=== PATIENT | male | born 1975 | race Caucasian/White ===

== ENCOUNTER 2016-12-30 13:46 | Inpatient (IN) | payer BC ==
--- NOTE | 2016-12-30 13:49 | PDOC ---
Attending Attestation - Resident Resident Name: ZariaDebbieCherri - ED Attending Attestation I have performed the following: I have examined & evaluated the patient, The case was reviewed & discussed with the resident, I agree w/resident's findings & plan, Exceptions are as noted - HPI HPI: 12/30/16 13:48 The patient is a 41-year-old male, sp cholecstectomy, who presents with abdominal pain and subjective fever. 12/30/16 16:59 - Physicial Exam PE: 12/30/16 13:49 The patient is well-appearing and in no acute distress Vitals noted including heart rate greater than 90, fever He meets diagnostic criteria for SIRS Abdomen is soft and tender to deep palpation in the epigastrum and LUQ - Medical Decision Making 12/30/16 17:00 The patient is well appearing and in no acute distress I suspect an intrabdominal source of infection given the abdominal pain and LFT abnormalities Hepatitis panel pending Will cover with Zosyn Will admit Clinical impression: Fever Abdominal pain Transaminitis Sepsis Possible cholangitis Case discussed in detail with admitting provider including history, physical exam and ancillary studies. Admitting physician has assumed care for the patient, will follow all pending diagnostics and will complete the evaluation and treatment. 12/30/16 17:08
[2016-12-30] MEDS ORDERED: SODIUM CHLORIDE 0.9% 1000 ML INFUS.BAG IV STA (14:05)
[2016-12-30] MEDS ORDERED: morphine CARPU-JECT 4 MG/1 ML DISP.SYRIN IVPUSH ONE ×2 (14:08→17:20)
[2016-12-30 14:19] LABS: URINE APPEARANCE Clear; URINE BILIRUBIN Negative (NEGATIVE); URINE BLOOD Trace-intact (NEGATIVE); URINE COLOR AMBER; URINE GLUCOSE (UA) Negative (NEGATIVE); URINE KETONE Negative (NEGATIVE); URINE LEUK ESTERASE Negative (NEGATIVE); URINE NITRITE Negative (NEGATIVE); URINE PROTEIN Negative (NEGATIVE); URINE UROBILINOGEN 1.0 E.U/dl (0.2-1.0)
--- NOTE | 2016-12-30 14:28 | PDOC ---
History of Present Illness - General Chief Complaint: Pain, Acute Stated Complaint: ABDOMINAL PAIN RADIATING TO THE BACK Time Seen by Provider: 12/30/16 13:47 History Source: Patient Exam Limitations: No Limitations - History of Present Illness Initial Comments: 12/30/16 14:17 CHIEF COMPLAINT: Severe abdominal pain PCP: Dr. Muller HISTORY OF PRESENT ILLNESS: 41 year old male presented to the ED with the chief complaints of severe abdominal pain since yesterday. A/c to the patient, he started having abdominal pain since yesterday, located in the epigastric and umbilical area, radiating b/ l to the back, spasmodic in nature, lasting for 10-20 seconds, 10/10 in intensity, associated with nausea no vomiting. He also felt chest pressure but denies palpitation, sob, cough. Noticed dark colored stool this morning, no fresh blood. [place] feverish (didn't record the temperature), chills but no rigors or sweating. Bladder habit normal. Sleep disturbed and appetite decreased since the illness. Patient reports he had blood in his right eye, went to an molding press operator and they said it would resolve without medical management and it went away after 2weeks. Patient mentions he had cholecystectomy 20 yrs ago. And after 2 yrs of the surgery, they had to perform an open abdominal surgery to remove the remaining stones, mentions " I had so many stones, they could make a necklace out of it". Recent Travel: None PAST MEDICAL HISTORY: Borderline Hypertension and Hyperlipidemia. PAST SURGICAL HISTORY: Cholecystectomy (20 yrs ago) Social History: Smoking: Denies Alcohol: Occasional. Drugs: Denies Occupation: Traveling Crane Operator at a company. Family History: Allergies Past History - Past Medical History Allergies/Adverse Reactions: Allergies Allergy/AdvReac Type Severity Reaction Status Date / Time No Known Allergies Allergy Verified 12/30/16 13:47 Home Medications: Ambulatory Orders NK [No Known Home Medication] 12/30/16 - Surgical History Cholecystectomy: Yes (AGE 23) - Psycho/Social/Smoking Cessation Hx Anxiety: No Suicidal Ideation: No Smoking History: Never smoked Hx Alcohol Use: Yes (OCCASIONAL) Drug/Substance Use Hx: No Substance Use Type: None Review of Systems - Review of Systems Able to Perform ROS?: Yes Comments:: 12/30/16 14:29 CONSTITUTIONAL: Absent: fever, chills, diaphoresis, generalized weakness, malaise, loss of appetite HEENT: Absent: rhinorrhea, nasal congestion, throat pain, throat swelling, difficulty swallowing, mouth swelling, ear pain, eye pain, visual Changes CARDIOVASCULAR: Absent: chest pain, syncope, palpitations, irregular heart rate, lightheadedness , peripheral edema RESPIRATORY: Absent: cough, shortness of breath, dyspnea with exertion, orthopnea, wheezing, stridor, hemoptysis GASTROINTESTINAL: Present:abdominal pain, abdominal distension Absent: , nausea, vomiting, diarrhea, constipation, melena, hematochezia GENITOURINARY: Absent: dysuria, frequency, urgency, hesitancy, hematuria, flank pain, genital pain MUSCULOSKELETAL: Present: Back pain Absent: myalgia, arthralgia, joint swelling SKIN: Absent: rash, itching, pallor HEMATOLOGIC/IMMUNOLOGIC: Absent: easy bleeding, easy bruising, lymphadenopathy, frequent infections ENDOCRINE: Absent: unexplained weight gain, unexplained weight loss, heat intolerance, cold intolerance NEUROLOGIC: Absent: headache, focal weakness or paresthesias, dizziness, unsteady gait, seizure, mental status changes, bladder or bowel incontinence PSYCHIATRIC: Absent: anxiety, depression, suicidal or homicidal ideation, hallucinations. Is the patient limited Bulgarian proficient: No *Physical Exam - Vital Signs Last Vital Signs Temp Pulse Resp BP Pulse Ox 101.6 F H 96 H 16 154/97 98 12/30/16 13:47 12/30/16 13:47 12/30/16 13:47 12/30/16 13:47 12/30/16 13:47 - Physical Exam Comments: 12/30/16 14:31 PE: GENERAL: Awake, alert, and fully oriented, in no acute distress HEAD: No signs of trauma EYES: PERRLA, EOMI, sclera anicteric, conjunctiva clear ENT: Auricles normal inspection, hearing grossly normal, nares patent, oropharynx clear without exudates. Moist mucosa NECK: Normal ROM, supple, no lymphadenopathy, JVD, or masses LUNGS: Breath sounds equal, clear to auscultation bilaterally. No wheezes, and no crackles.. HEART: Regular rate and rhythm, normal S1 and S2, no murmurs, rubs or gallops ABDOMEN: Soft, tenderness on the left and right upper quadrant, normoactive bowel sounds. No guarding, no rebound. No masses EXTREMITIES: Normal range of motion, no edema. No clubbing or cyanosis. No cords, erythema, or tenderness NEUROLOGICAL: Cranial nerves II through XII grossly intact. Normal speech, normal gait SKIN: Warm, Dry, normal turgor, no rashes or lesions noted. ED Treatment Course - LABORATORY CBC & Chemistry Diagram: 12/30/16 14:35 12/30/16 14:35 Medical Decision Making - Medical Decision Making 12/30/16 14:31 Patient seen and examined at bed side. Vitals noted, temp- 101.6F, HR 96bpm. Patient looks comfortable. Will order basic labs, cardiac profile, lactic acid, UA, CXR, EKG, Abdominal CT scan. IV NS bolus 2L IV Morphine 4mg. 12/30/16 15:00 Patient reassessed. Pain still persists. Will order IV Morphine 4mg stat 12/30/2016 17:00 Labs noted, has transaminitis, slight elevation of WBC. Hepatitis panel pending 12/30/2016 17:30 CT scan shows : Sigmoid diverticulosis without evidence of acute diverticulitis. No acute pathology. Left inguinal hernia containing fat only. 2.4 cm duodenal diverticulum. A/P: Sepsis secondary to most likely GI origin (Possible colitis) Sepsis protocol was started in the ED. Received 2L of bolus of IV NS followed by maintainance fluid Total of 8mg of IV Morphine Admit to Med-Surg Case discussed with Dr. Rai. Would consider GI consult Illness, Investigation and Plan of care explained to the patient. He verbalized understanding. Case seen and discussed with Dr. Sarmiento. *DC/Admit/Observation/Transfer Diagnosis at time of Disposition: Sepsis - Discharge Dispostion Condition at time of disposition: Good Admit: Yes Decision to Admit order Date/Time: 12/30/16 17:17
[2016-12-30] MEDS ORDERED: ACETAMINOPHEN 325 MG TABLET (FP) PO ONE (14:34)
[2016-12-30 14:44] LABS: BASOPHIL 2.8 % (0-2.0); EOSINOPHIL 0.1 % (0-4.5); MCH 28.9 pg (25.7-33.7); MEAN CELL VOLUME 85.1 fl (80-96); MEAN PLT VOLUME 8.5 fl (7.5-11.1); NEUTROPHILS 88.6 % (42.8-82.8); PLATELET COUNT 228 K/MM3 (134-434); RDW 12.5 % (11.9-15.9); WHITE BLOOD COUNT 10.2 K/mm3 (4.0-10.0)
[2016-12-30] MEDS ORDERED: ACETAMINOPHEN 325 MG TABLET (FP) ONE (14:44)
[2016-12-30 14:57] LABS: ACTIVATED PTT 32.2 SECONDS (24.0-38.9)
[2016-12-30 15:01] LABS: INR 1.08 (0.82-1.09); PROTHROMBIN TIME (PATIENT) 12.1 SEC (10.2-13.0)
[2016-12-30 15:05] LABS: ALBUMIN 4.9 g/dl (3.5-5.0); ALK PHOS 116 U/L (32-92); ANION GAP 9 (8-16); BILIRUBIN,TOTAL 1.4 mg/dl (0.2-1.0); CALCIUM 9.6 mg/dl (8.4-10.2); CO2 26 mmol/L (22-28); CPK(DFH) 160 IU/L (38-174); GLUCOSE,RANDOM 103 mg/dl (74-106); SGOT/AST 236 U/L (10-42); TOT PROT 8.7 g/dl (6.4-8.3)
[2016-12-30 15:20] LABS: SGPT/ALT 385 U/L (10-40)
[2016-12-30 15:37] LABS: TROPONIN I (DFP) < 0.03 ng/ml (0.03-0.50)
[2016-12-30 15:43] LABS: CK MB 1.6 ng/ml (0.3-4.0)
[2016-12-30] MEDS ORDERED: PIPERACILLIN/TAZOBACTAM 4.5 GM VIAL IVPB ONE (17:08)
[2016-12-30] MEDS ORDERED: PIPERACILLIN/TAZOB 4.5 GM/100 ML PRE-DOCKED IVPB ONE (17:12)
[2016-12-30] MEDS: SODIUM CHLORIDE 1,000 ML IV SCH ×2 (17:18→21:29)
[2016-12-30 18:36] VITALS: BMI 33.7
--- NOTE | 2016-12-30 20:58 | EKG ---
Test Reason : Blood Pressure : / mmHG Vent. Rate : 084 BPM Atrial Rate : 084 BPM P-R Int : 146 ms QRS Dur : 128 ms QT Int : 374 ms P-R-T Axes : 042 -24 -10 degrees QTc Int : 441 ms NORMAL SINUS RHYTHM RIGHT BUNDLE BRANCH BLOCK MINIMAL VOLTAGE CRITERIA FOR LVH, MAY BE NORMAL VARIANT ABNORMAL ECG NO PREVIOUS ECGS AVAILABLE Confirmed by ELIZABETH KNOTT MD ([id number]) on 12/30/2016 8:57:45 PM Referred By: CASEY LI Confirmed By:ELIZABETH KNOTT MD
[2016-12-30] MEDS: HEPARIN NA (PORCINE) 5,000 UNITS/ML 1ML VIAL SQ SCH (21:29)
[2016-12-30] MEDS ORDERED: diphenhydrAMINE HCL 25 MG CAPSULE (FP) PO PRN (23:01)
[2016-12-30] MEDS: morphine CARPU-JECT 2 MG/1 ML DISP.SYRIN IVPB PRN (23:17)
--- NOTE | 2016-12-30 23:17 | HP ---
Admitting History and Physical - Admission Chief Complaint: abd pain, fever, chills History of Present Illness: 41 yo obese m with hx of cholecystectomy 20 yr ago who presents to the ER w c/o abdominal pain. He reports the pain started yesterday 830P, the pain is epigastric and radiates to his back, chest and sides. He reports associated chills, body aches, and fever. He states he took 2 Tylenol with little improvement. He denies any aggravating factors. He reports eating sphaghetti before onset of the the pain. He denies diarrhea, vomiting, nausea, sick contacts, recent travel, cough, sore throat. He denies syncope, heart palps, sob , dysuria, bloody stools, leg edema, weakness, numbness. He denies use of recent abx, supplements, advil, motrin. PMH/PSH- cholecystectomy, obesity Social- 3 glasses of wine weekly. denies rec drugs, tobacco. Works in [employer] de[employer] for [employer]. Famhx- mom- low platelets. no PCP ros neg except for hpi Physical general- in nad, alert, bbese hent- at/nc, neck supple, no lymphadenopathy, trachea midline, no pharyngeal erythema gi- soft, obese, non tender, no rebound, no rigidity, no guarding resp- no cough, no wheeze, no rales, no ronchi, lungs ctab cards- s1s2 heard, no rubs, rrr, no jvd, extremity pulses +2 skin- dry, warm, intact psych- cooperative, no agitation,no si/hi neuro- alert, speech clear, no seizures, cn2-12 grossly intact, gait wnl. musk- normal arom bue/ble Prob list transaminitis fever abd pain leukocytosis sepsis imaging: ekg reviewed- rbbb, nsr cxr negative for acute process a/p 41 yo obese m with hx of cholecystectomy 20 yr ago who presents to the ER w c/o abdominal pain admitted for eval of their emergent condition 1. Abdominal pain, sepsis, transaminitis, ?viral, ?Cholangitis ctap shows sigmoid diverticulosis w/out diverticulitis has mild white count, and fever had cholecystectomy 20 years ago check hep panel, liver us, tylenol level avoid hepatotoxic drugs monitor cmp started on zosyn id consult gi consult pain control f/u cultures avoid hepatotoxic meds dvt prophy scds, oob, hep sq fen ivf, npo dispo- requires >2mn stay for acute hepatitis History Source: Patient Limitations to Obtaining History: No Limitations - Smoking History Smoking history: Never smoked Aproximately how many cigarettes per day: 0 - Alcohol/Substance Use Hx Alcohol Use: Yes (OCCASIONAL) Home Medications - Allergies Allergies/Adverse Reactions: Allergies Allergy/AdvReac Type Severity Reaction Status Date / Time No Known Allergies Allergy Verified 12/30/16 13:47 - Home Medications Home Medications: Ambulatory Orders NK [No Known Home Medication] 12/30/16 Physical Examination Vital Signs: Vital Signs Temperature 99.0 F 12/30/16 22:15 Pulse Rate 90 12/30/16 22:15 Respiratory Rate 19 12/30/16 22:15 Blood Pressure 131/80 12/30/16 22:15 O2 Sat by Pulse Oximetry (%) 94 L 12/30/16 22:15 Visit type - Emergency Visit Emergency Visit: Yes ED Registration Date: 12/30/16 Care time: The patient presented to the Emergency Department on the above date and was hospitalized for further evaluation of their emergent condition. - New Patient This patient is new to me today: Yes Date on this admission: 12/31/16 - Critical Care Critical Care patient: No
[2016-12-30] MEDS ORDERED: PIPERACILLIN/TAZOB 3.375 GM 50 ML IVPB ONE (23:29)
[2016-12-31] MEDS: PIPERACILLIN/TAZOB 3.375 GM/50 ML PRE-DOCKED IVPB SCH ×2 (01:59→09:29)
[2016-12-31] MEDS: HEPARIN NA (PORCINE) 5,000 UNITS/ML 1ML VIAL SQ SCH ×3 (06:16→21:15)
[2016-12-31 07:52] LABS: ALBUMIN 3.7 g/dl (3.5-5.0); ALK PHOS 101 U/L (32-92); ANION GAP 7 (8-16); BILIRUBIN,TOTAL 1.3 mg/dl (0.2-1.0); CALCIUM 8.5 mg/dl (8.4-10.2); CO2 24 mmol/L (22-28); CREATININE 0.9 mg/dl (0.6-1.3); GLUCOSE,RANDOM 100 mg/dl (74-106); SGOT/AST 192 U/L (10-42); SGPT/ALT 331 U/L (10-40); TOT PROT 6.8 g/dl (6.4-8.3)
[2016-12-31 08:06] LABS: BASOPHIL 0.7 % (0-2.0); EOSINOPHIL 0.5 % (0-4.5); MCH 29.1 pg (25.7-33.7); MCHC 33.8 g/dl (32.0-35.9); NEUTROPHILS 81.9 % (42.8-82.8); PLATELET COUNT 178 K/MM3 (134-434); RDW 12.6 % (11.9-15.9); WHITE BLOOD COUNT 5.4 K/mm3 (4.0-10.0)
[2016-12-31] MEDS: morphine CARPU-JECT 2 MG/1 ML DISP.SYRIN IVPB PRN ×3 (12:00→21:28)
--- NOTE | 2016-12-31 13:41 | CONSULT ---
Consult Consult Specialty:: infectious diseases Reason for Consultation:: bacteremia,sepsis - History of Present Illness Chief Complaint: abd pain,fever History of Present Illness: 41 yo obese m with hx of cholecystectomy 20 yr ago who presents to the ER w c/o abdominal pain. pain mainly in the epigastric region associated with fever. patient states that the pain came on acutely patient was worked up and the blood cx were found to be positive for gm negative bacteremia patient also was febrile,currently stable no abd pain or nausea or vomiting - History Source History Provided By: Patient Limitations to Obtaining History: No Limitations - Alcohol/Substance Use Hx Alcohol Use: Yes (OCCASIONAL) - Smoking History Smoking history: Never smoked Aproximately how many cigarettes per day: 0 Home Medications - Allergies Allergies/Adverse Reactions: Allergies Allergy/AdvReac Type Severity Reaction Status Date / Time No Known Allergies Allergy Verified 12/30/16 13:47 - Home Medications Home Medications: Ambulatory Orders NK [No Known Home Medication] 12/30/16 Review of Systems - Review of Systems Constitutional: reports: Fever, Other Eyes: reports: No Symptoms HENT: reports: No Symptoms Neck: reports: No Symptoms Cardiovascular: reports: No Symptoms Respiratory: reports: No Symptoms Gastrointestinal: reports: Abdominal Pain, Nausea Genitourinary: reports: No Symptoms Breasts: reports: No Symptoms Reported Musculoskeletal: reports: No Symptoms Integumentary: reports: No Symptoms Neurological: reports: No Symptoms Endocrine: reports: No Symptoms Hematology/Lymphatic: reports: No Symptoms Psychiatric: reports: No Symptoms Physical Exam Vital Signs: Vital Signs Temperature 100.5 F H 12/31/16 10:25 Pulse Rate 80 12/31/16 10:25 Respiratory Rate 18 12/31/16 10:25 Blood Pressure 135/87 12/31/16 10:25 O2 Sat by Pulse Oximetry (%) 97 12/31/16 09:00 Constitutional: Yes: No Distress, Calm, Obese Eyes: Yes: Conjunctiva Clear HENT: Yes: Atraumatic, Normocephalic Neck: Yes: Supple, Trachea Midline Cardiovascular: Yes: Regular Rate and Rhythm Respiratory: Yes: Regular, CTA Bilaterally Gastrointestinal: Yes: Normal Bowel Sounds, Soft Musculoskeletal: Yes: WNL Extremities: Yes: WNL Wound/Incision: Yes: Clean/Dry, Well Approximated Neurological: Yes: Alert, Oriented Psychiatric: Yes: Alert, Oriented Labs: CBC, BMP 12/31/16 06:30 12/31/16 06:30 Imaging - Results Chest X-ray: Report Reviewed, Image Reviewed Cat Scan: Report Reviewed, Image Reviewed MRI: Image Reviewed Assessment/Plan leukocytosis gm negative bacteremia patient source is probably gi tract ct scan result noted await for mrcp result plan continue zosyn repeat blood cx hydration rest as per the team
--- NOTE | 2016-12-31 15:12 | PN ---
Physical Exam: SUBJECTIVE: Patient seen and examined at bedside. Complaining of abdominal pain that radiates to back. Similar pain to what he experienced 20 years ago when he first had his gallbladder removed, and again 18 years ago when he had revision surgery. OBJECTIVE: Vital Signs Period Temp Pulse Resp BP Sys/Allen Pulse Ox Last 24 Hr 99.0 F-100.5 F 79-90 16-19 109-139/61-87 94-97 GENERAL: The patient is awake, alert, and fully oriented, in mild distress secondary to pain. HEAD: Normal with no signs of trauma. EYES: PERRL, extraocular movements intact, sclera anicteric, conjunctiva clear. No ptosis. LUNGS: Breath sounds equal, clear to auscultation bilaterally, no wheezes, no crackles, no accessory muscle use. HEART: Regular rate and rhythm, S1, S2 without murmur, rub or gallop. ABDOMEN: Tenderness over epigastrum, normoactive bowel sounds, no guarding, no rebound EXTREMITIES: 2+ pulses, warm, well-perfused, no edema. NEUROLOGICAL: Cranial nerves II through XII grossly intact. Normal speech, gait not observed. Laboratory Results - last 24 hr 12/31/16 12/31/16 06:30 06:30 WBC 5.4 D RBC 5.13 Hgb 14.9 D Hct 44.1 MCV 86.0 MCHC 33.8 RDW 12.6 Plt Count 178 D MPV 9.0 Neutrophils % 81.9 Lymphocytes % 8.8 D Monocytes % 8.1 D Eosinophils % 0.5 D Basophils % 0.7 Sodium 134 L Potassium 4.1 Chloride 103 Carbon Dioxide 24 Anion Gap 7 L BUN 11 D Creatinine 0.9 Creat Clearance w eGFR > 60 Random Glucose 100 Calcium 8.5 Total Bilirubin 1.3 H AST 192 H ALT 331 H Alkaline Phosphatase 101 H Total Protein 6.8 D Albumin 3.7 D Active Medications Generic Name Dose Route Start Last Admin Trade Name Freq PRN Reason Stop Dose Admin Diphenhydramine HCl 25 mg 12/30/16 23:01 Benadryl - PO Q6H PRN FOR ITCHING Heparin Sodium (Porcine) 5,000 unit 12/30/16 22:00 12/31/16 06:16 Heparin - SQ 5,000 unit TID MATTHEW Administration Sodium Chloride 1,000 mls @ 100 mls/hr 12/30/16:15 12/30/16 17:18 Normal Saline - IV 100 mls/hr ASDIR MATTHEW Administration Sodium Chloride 1,000 mls @ 100 mls/hr 12/30/16 20:45 12/30/16 21:29 Normal Saline - IV 100 mls/hr ASDIR MATTHEW Administration Piperacillin Sod/Tazobactam Sod 50 mls @ 100 mls/hr 12/31/16 18:00 Zosyn 3.375gm Ivpb (Pre-Docked) IVPB Q8H-IV MATTHEW Protocol Morphine Sulfate 1 mg 12/30/16 20:34 12/30/16 23:17 Morphine Injection - IVPB 1 mg Q4H PRN Administration PAIN ASSESSMENT/PLAN 41 year-old man with a PMH of borderline HTN, HLD, and s/p choleycystectomy x 20 years, admitted for fever, abdominal pain, and bactermia. Abdominal pain Fever Gram negative bacteremia Hyperbilirubinemia --12/31 MRCP: 3.4 x 1.4 x 1.4cm fluid structure with gallbladder fossa cystic duct remnant v. gallbladder remnant, mild concentric wall enhacement of common hepatic duct; stranding within fossa; common hepatic duct narrowing --Tm 101.9 --Total bili 1.4 --blood cultures 2/2 growing GNB --start Zosyn (day #1) --ID following --GI consult requested Hypertension --BP well-controlled Hyperlipidemia --on no meds F/E/N Fluids: NS @ 100mL/hr Electrolytes: replete as indicated Nutrition: NPO DVT prophylaxis: subq heparin Dispo: continues to require inpatient care. Full Code. Visit type - Emergency Visit Emergency Visit: Yes ED Registration Date: 12/30/16 Care time: The patient presented to the Emergency Department on the above date and was hospitalized for further evaluation of their emergent condition. - New Patient This patient is new to me today: Yes Date on this admission: 01/01/17 - Critical Care Critical Care patient: No
[2016-12-31] MEDS ORDERED: ACETAMINOPHEN 325 MG TABLET (FP) PO PRN (16:58)
[2016-12-31] MEDS: SODIUM CHLORIDE 1,000 ML IV SCH ×2 (17:23→21:16)
[2016-12-31] MEDS ORDERED: PIPERACILLIN/TAZOB 3.375 GM 50 ML IVPB SCH (18:00)
[2016-12-31] MEDS ORDERED: PIPERACILLIN/TAZOB 3.375 GM/50 ML PRE-DOCKED IVPB SCH (18:00)
[2017-01-01] MEDS ORDERED: diphenhydrAMINE HCL 25 MG CAPSULE (FP) PO PRN (00:27)
[2017-01-01] MEDS ORDERED: SODIUM CHLORIDE 1,000 ML IV SCH (00:27)
[2017-01-01] MEDS: PIPERACILLIN/TAZOB 3.375 GM 50 ML IVPB SCH ×3 (01:31→17:33)
[2017-01-01] MEDS: morphine CARPU-JECT 2 MG/1 ML DISP.SYRIN IVPB PRN ×3 (01:32→10:51)
[2017-01-01] MEDS: SODIUM CHLORIDE 1,000 ML IV SCH ×3 (01:32→12:28)
[2017-01-01] MEDS: ACETAMINOPHEN 325 MG TABLET (FP) PO PRN ×2 (02:30→16:51)
[2017-01-01] MEDS: HEPARIN NA (PORCINE) 5,000 UNITS/ML 1ML VIAL SQ SCH ×3 (05:52→22:22)
[2017-01-01 09:06] LABS: BASOPHIL 0.5 % (0-2.0); EOSINOPHIL 0.1 % (0-4.5); MCH 28.6 pg (25.7-33.7); MCHC 33.8 g/dl (32.0-35.9); MEAN CELL VOLUME 84.5 fl (80-96); MEAN PLT VOLUME 7.8 fl (7.5-11.1); NEUTROPHILS 86.6 % (42.8-82.8); PLATELET COUNT 151 K/MM3 (134-434); RDW 13.4 % (11.9-15.9); WHITE BLOOD COUNT 6.3 K/mm3 (4.0-10.0)
[2017-01-01 09:23] LABS: ALBUMIN 3.3 g/dl (3.4-5.0); ANION GAP 9 (8-16); BILIRUBIN,TOTAL 1.2 mg/dL (0.2-1.0); CALCIUM 7.9 mg/dL (8.5-10.1); CO2 24 mmol/L (21-32); CREATININE 0.8 mg/dL (0.7-1.3); GLUCOSE,RANDOM 94 mg/dL (74-106); MAGNESIUM 2.2 mg/dL (1.8-2.4); PHOSPHOROUS 1.8 mg/dL (2.5-4.9); SGOT/AST 110 U/L (15-37); SGPT/ALT 298 U/L (12-78); TOT PROT 6.8 g/dl (6.4-8.2)
[2017-01-01 09:24] LABS: ALK PHOS 135 U/L (45-117)
--- NOTE | 2017-01-01 11:23 | PN ---
Progress Note (short form) - Note Progress Note: GASTROENTEROLOGY PATIENT ADMITTED TO [facility] YESTERDAY. SPOKE WITH MOHAN GLEZ NP TODAY. DR JOE CONSULTED BY MOHAN GLEZ NP. DR JOE DOES NOT PERFORM ANY LONGER AND HE ASKED PATIENT TO BE TRANSFERRED TO [facility] FOR ERCP. I WILL INFORM DR MIRAMONTES OF DR JOE'S REQUEST FOR ERCP. KENNETH DICKINSON MD
--- NOTE | 2017-01-01 13:13 | PN ---
Physical Exam: SUBJECTIVE: Patient seen and examined OBJECTIVE: Vital Signs Period Temp Pulse Resp BP Sys/Allen Pulse Ox Last 24 Hr 98.7 F-101.9 F 78-86 18-24 125-153/64-90 96-96 GENERAL: The patient is awake, alert, and fully oriented, in mild distress secondary to pain. HEAD: Normal with no signs of trauma. EYES: PERRL, extraocular movements intact, sclera anicteric, conjunctiva clear. No ptosis. LUNGS: Breath sounds equal, clear to auscultation bilaterally, no wheezes, no crackles, no accessory muscle use. HEART: Regular rate and rhythm, S1, S2 without murmur, rub or gallop. ABDOMEN: Tenderness over epigastrum, normoactive bowel sounds, no guarding, no rebound EXTREMITIES: 2+ pulses, warm, well-perfused, no edema. NEUROLOGICAL: Cranial nerves II through XII grossly intact. Normal speech, gait not observed. Laboratory Results - last 24 hr 01/01/17 01/01/17 08:40 08:40 WBC 6.3 RBC 5.13 Hgb 14.7 Hct 43.3 MCV 84.5 MCHC 33.8 RDW 13.4 Plt Count 151 MPV 7.8 Neutrophils % 86.6 H Lymphocytes % 3.9 L Monocytes % 8.9 Eosinophils % 0.1 Basophils % 0.5 Sodium 135 L Potassium 3.9 Chloride 102 Carbon Dioxide 24 Anion Gap 9 BUN 13 Creatinine 0.8 Creat Clearance w eGFR > 60 Random Glucose 94 Calcium 7.9 L Phosphorus 1.8 L Magnesium 2.2 Total Bilirubin 1.2 H AST 110 H ALT 298 H Alkaline Phosphatase 135 H Total Protein 6.8 Albumin 3.3 L Active Medications Generic Name Dose Route Start Last Admin Trade Name Freq PRN Reason Stop Dose Admin Acetaminophen 650 mg 01/01/17 00:27 01/01/17 02:30 Tylenol - PO 650 mg Q6H PRN Administration FEVER OR PAIN Diphenhydramine HCl 25 mg 01/01/17 00:27 Benadryl - PO Q6H PRN FOR ITCHING Heparin Sodium (Porcine) 5,000 unit 01/01/17 06:00 01/01/17 05:52 Heparin - SQ Not Given TID MATTHEW Hydromorphone HCl 1 mg 01/01/17 13:07 Dilaudid Injection - IVPUSH Q4H PRN PAIN Piperacillin Sod/Tazobactam Sod 50 mls @ 100 mls/hr 01/01/17 02:00 01/01/17 10: 13 Zosyn 3.375gm Ivpb (Pre-Docked) IVPB 100 mls/hr Q8H-IV MATTHEW Administration Protocol Dextrose/Sodium Chloride 1,000 mls @ 125 mls/hr 01/01/17 13:15 D5-Ns - IV ASDIR MATTHEW ASSESSMENT/PLAN 41 year-old man with a PMH of borderline HTN, HLD, and s/p choleycystectomy x 20 years, admitted for fever, abdominal pain, and bactermia. Abdominal pain Hyperbilirubinemia Transaminitis --12/31 MRCP: 3.4 x 1.4 x 1.4cm fluid structure with gallbladder fossa cystic duct remnant v. gallbladder remnant, mild concentric wall enhacement of common hepatic duct; stranding within fossa; common hepatic duct narrowing --Total bili and transaminases trending down --Discussed case with Dr. Gayle, will get HIDA scan --Dr. Etienne to see patient later today Fever Gram negative bacteremia --blood cultures 2/2 growing GNB --continue Zosyn (day #2) --ID following Hypertension --BP well-controlled Hyperlipidemia --on no meds F/E/N Fluids: D5NS @ 125mL/hr Electrolytes: replete as indicated Nutrition: NPO DVT prophylaxis: subq heparin Dispo: continues to require inpatient care. Full Code. Visit type - Emergency Visit Emergency Visit: Yes ED Registration Date: 12/30/16 Care time: The patient presented to the Emergency Department on the above date and was hospitalized for further evaluation of their emergent condition. - New Patient This patient is new to me today: No - Critical Care Critical Care patient: No
[2017-01-01] MEDS ORDERED: DEXTROSE 5%-NORMAL SALINE 1,000 ML IV SCH (13:15)
--- NOTE | 2017-01-01 15:13 | PN ---
Progress Note, Physician History of Present Illness: more stable no new events plan for hida scan - Current Medication List Current Medications: Active Medications Acetaminophen (Tylenol -) 650 mg PO Q6H PRN PRN Reason: FEVER OR PAIN Last Admin: 01/01/17 02:30 Dose: 650 mg Diphenhydramine HCl (Benadryl -) 25 mg PO Q6H PRN PRN Reason: FOR ITCHING Heparin Sodium (Porcine) (Heparin -) 5,000 unit SQ TID MATTHEW Last Admin: 01/01/17 13:26 Dose: 5,000 unit Hydromorphone HCl (Dilaudid Injection -) 1 mg IVPB Q4H PRN PRN Reason: PAIN Piperacillin Sod/Tazobactam Sod (Zosyn 3.375gm Ivpb (Pre-Docked)) 50 mls @ 100 mls/hr IVPB Q8H-IV MATTHEW PRN Reason: Protocol Last Admin: 01/01/17 10:13 Dose: 100 mls/hr Dextrose/Sodium Chloride (D5-Ns -) 1,000 mls @ 125 mls/hr IV ASDIR MATTHEW Last Admin: 01/01/17 13:27 Dose: 125 mls/hr - Objective Vital Signs: Vital Signs Temperature 100.2 F H 01/01/17 10:00 Pulse Rate 86 01/01/17 10:00 Respiratory Rate 20 01/01/17 10:00 Blood Pressure 137/65 01/01/17 10:00 O2 Sat by Pulse Oximetry (%) 96 01/01/17 09:00 Constitutional: Yes: No Distress, Calm Cardiovascular: Yes: Regular Rate and Rhythm Respiratory: Yes: Regular, CTA Bilaterally Gastrointestinal: Yes: Normal Bowel Sounds, Soft Musculoskeletal: Yes: WNL Extremities: Yes: WNL Neurological: Yes: Alert, Oriented Psychiatric: Yes: Alert Labs: CBC, BMP 01/01/17 08:40 01/01/17 08:40 INR, PTT INR 1.08 (0.82-1.09) 12/30/16 14:35 Assessment/Plan leukocytosis gm negative bacteremia plan continue zosyn repeat blood cx report awaited hydration rest as per the team await for all results
[2017-01-01] MEDS: HYDROmorphone HCL CARPU-JECT 1 MG/1 ML DISP.SYRIN IVPB PRN ×2 (16:02→22:22)
--- NOTE | 2017-01-01 19:32 | CON.GI ---
Consult Consult Specialty:: GI Referred by:: Hospitalist Service Reason for Consultation:: Abdominal pain / abnormal LFTs - History of Present Illness Chief Complaint: "I was eating and started having abdominal pain" History of Present Illness: 41M in [place] up until this past sunday night. He was eating dinner at an English restaurant when during his meal he began to experience abdominal bloating, abdominal pain remniscent of pain when he had acute cholecystitis 20 years ago leading to an open cholecystecomy. The pain worsened, he believes that he had a fever sunday night and went to the [place] ER. He was noted to have a leukocytosis and abnormal LFTs. Dr. vega was consulted however he did not evaluate the patient and advised transferring the patient to [facility]. Mr. La alludes to undergoing and ERCP 2 years after his cholecystecomy to have "junk cleaned out". MRCP and CT scan revealed a structure in the gallbladder fossa that raises the question of a dilated cystic duct vs. piece of gallbladder remnant along with thickening and inflammatory changes at the common hepatic duct. There was ? subtle narrowing noted at the CHD as well. HIDA was unrevealing for a complete biliary obstruction - History Source History Provided By: Patient, Family Member Limitations to Obtaining History: No Limitations - Past Medical History Additional Medical History: Cholelithiasis - Past Surgical History Additional Surgical History: Open cholecystectomy, ERCP - Alcohol/Substance Use Hx Alcohol Use: Yes (OCCASIONAL) History of Substance Use: reports: None - Smoking History Smoking history: Never smoked Aproximately how many cigarettes per day: 0 - Social History Usual Living Arrangement: With Spouse ADL: Independent Occupation: Works in automotive industry Place of : [facility] History of Recent Travel: No Home Medications - Allergies Allergies/Adverse Reactions: Allergies Allergy/AdvReac Type Severity Reaction Status Date / Time No Known Allergies Allergy Verified 12/30/16 13:47 Family Disease History - Family Disease History Family Disease History: Other: Father ( 70's: prostate ca), Mother (alive: 72: thrombocytopenia), Sister (Healthy) Other Family History: 4 healthy children Review of Systems - Review of Systems Constitutional: reports: Fever. denies: Unintentional Wgt. Loss Cardiovascular: denies: Chest Pain Respiratory: denies: SOB Gastrointestinal: reports: Abdominal Pain, Bloating, Nausea. denies: Melena, Vomiting Physical Exam-GI Vital Signs: Vital Signs Temperature 102.2 F H 01/01/17 17:55 Pulse Rate 92 H 01/01/17 17:55 Respiratory Rate 16 01/01/17 17:55 Blood Pressure 132/77 01/01/17 17:55 O2 Sat by Pulse Oximetry (%) 96 01/01/17 09:00 Constitutional: Yes: Calm Eyes: No: Sclera Icterus Cardiovascular: Yes: Regular Rate and Rhythm Respiratory: Yes: CTA Bilaterally Gastrointestinal Inspection: Yes: Scars (obliquie RUQ scar). No: Distention ...Auscultate: Yes: Normoactive Bowel Sounds ...Palpate: Yes: Tenderness (Mild TTP upper abdomen / RUQ). No: Tenderness, Rebound ...Percussion: No: Tympanitic Edema: No Neurological: Yes: Alert, Oriented Labs: CBC, BMP 01/01/17 08:40 01/01/17 08:40 INR, PTT INR 1.08 (0.82-1.09) 12/30/16 14:35 Imaging - Results Cat Scan: Report Reviewed MRI: Report Reviewed Problem List - Problems (1) Cholangitis Assessment/Plan: Vs. stump cholecystitis Gives history of previous ERCP leading to removal of stone debris I discussed ERCp to exclude primary ductal process such as retained stone fragments. I discussed potential risjks of the procedure with Mr. La and his like but not limited to bleeding, perforation requiring surgery to repair, infection, sedation medication effects, pancreatitis, all of which could be potentially life threatening. he has agreed to the procedure. Dr. Ellington from surgery is also following. Biliary tract does not appear to be the source of his sepsis, consideration may need to be given for patient to undergo resection of gallbladder remnant. IV Abx NPO IV fluids Code(s): K83.0 - CHOLANGITIS
--- NOTE | 2017-01-01 19:58 | CONSULT ---
Consult Consult Specialty:: SURGERY Reason for Consultation:: ABDOMINAL PAIN - History of Present Illness Chief Complaint: ABDOMINAL PAIN History of Present Illness: 41 yo obese m with hx of emergency open cholecystectomy for acute cholecystitis 20 yr ago who presents to the ER w c/o abdominal pain. He reports the pain started yesterday 830P, the pain is epigastric and radiates to his back, chest and sides. He reports associated chills, body aches, and fever. He states he took 2 Tylenol with little improvement. He denies any aggravating factors. He reports eating sphaghetti before onset of the the pain. He denies diarrhea, vomiting, nausea, sick contacts, recent travel, cough, sore throat. He denies syncope, heart palps, sob, dysuria, bloody stools, leg edema, weakness, numbness. He denies use of recent abx, supplements, advil, motrin. States that he had ERCP 2 years ago for recurrent attack of abdominal pain and was told to have CBD "crystals". - History Source History Provided By: Patient Limitations to Obtaining History: No Limitations - Past Medical History Hepatobiliary: Yes: Cholecystitis, Choledocholithiasis Additional Medical History: Cholelithiasis - Past Surgical History Past Surgical History: Yes: Cholecystectomy (EMERGENCY OPEN) Additional Surgical History: Open cholecystectomy, ERCP - Alcohol/Substance Use Hx Alcohol Use: Yes (OCCASIONAL) History of Substance Use: reports: None - Smoking History Smoking history: Never smoked Aproximately how many cigarettes per day: 0 - Social History Usual Living Arrangement: With Spouse ADL: Independent Occupation: Works in automotive industry History of Recent Travel: No Home Medications - Allergies Allergies/Adverse Reactions: Allergies Allergy/AdvReac Type Severity Reaction Status Date / Time No Known Allergies Allergy Verified 12/30/16 13:47 Family Disease History - Family Disease History Family Disease History: Other: Father ( 70's: prostate ca), Mother (alive: 72: thrombocytopenia), Sister (Healthy) Other Family History: 4 healthy children Review of Systems - Review of Systems Constitutional: reports: Chills Gastrointestinal: reports: Abdominal Pain Pain Intensity: 3 Physical Exam Vital Signs: Vital Signs Temperature 102.2 F H 01/01/17 17:55 Pulse Rate 92 H 01/01/17 17:55 Respiratory Rate 16 01/01/17 17:55 Blood Pressure 132/77 01/01/17 17:55 O2 Sat by Pulse Oximetry (%) 96 01/01/17 09:00 Constitutional: Yes: Obese Eyes: Yes: Conjunctiva Clear HENT: Yes: Normocephalic Neck: Yes: Supple Cardiovascular: Yes: Regular Rate and Rhythm Respiratory: Yes: CTA Bilaterally Gastrointestinal: Yes: Soft, Abdomen, Obese, Tenderness (RUQ ON DEEP PALPATION) ...Rectal Exam: Yes: Deferred Labs: CBC, BMP 01/01/17 08:40 01/01/17 08:40 Imaging - Results Cat Scan: Report Reviewed, Image Reviewed Ultrasound: Report Reviewed, Image Reviewed MRI: Report Reviewed, Image Reviewed Problem List - Problems (1) Sepsis Code(s): A41.9 - SEPSIS, UNSPECIFIED ORGANISM (2) Cholangitis Code(s): K83.0 - CHOLANGITIS Assessment/Plan CHOLANGITIS R/O CHOLEDOCHOLITHIASIS, R/O STUMP CHOLECYSTITIS AGREE WITH ERCP CONTINUE IV ANTIBIOTICS
[2017-01-01] MEDS: DEXTROSE 5%-0.45% SALINE 1,000 ML IV SCH (22:22)
[2017-01-02] MEDS: PIPERACILLIN/TAZOB 3.375 GM 50 ML IVPB SCH ×3 (02:57→21:19)
[2017-01-02] MEDS: HYDROmorphone HCL CARPU-JECT 1 MG/1 ML DISP.SYRIN IVPB PRN ×3 (02:58→20:02)
[2017-01-02] MEDS: HEPARIN NA (PORCINE) 5,000 UNITS/ML 1ML VIAL SQ SCH (06:09)
[2017-01-02] MEDS: DEXTROSE 5%-0.45% SALINE 1,000 ML IV SCH (06:14)
[2017-01-02] MEDS ORDERED: INDOMETHACIN 50 MG RECTAL SUPPOSITORY PR ONE (08:00)
[2017-01-02 08:28] LABS: EOSINOPHIL 1.6 % (0-4.5); MCH 28.4 pg (25.7-33.7); MCHC 33.4 g/dl (32.0-35.9); MEAN CELL VOLUME 85.1 fl (80-96); MEAN PLT VOLUME 7.8 fl (7.5-11.1); NEUTROPHILS 66.4 % (42.8-82.8); PLATELET COUNT 149 K/MM3 (134-434); RDW 13.4 % (11.9-15.9); WHITE BLOOD COUNT 3.5 K/mm3 (4.0-10.0)
--- NOTE | 2017-01-02 08:44 | PN ---
Progress Note (short form) - Note Progress Note: patient pulled NGT out early this morning / last night. Per the nurse Ms. La said she saw no purpose of keeping it in. No vomiting reported / nausea. Advised advancing to clears. Problem List - Problems (1) Cholangitis Code(s): K83.0 - CHOLANGITIS
[2017-01-02] MEDS ORDERED: PT OWN MED DRAWER 7, Y5N ONE (08:56)
[2017-01-02 09:06] LABS: PHOSPHOROUS 1.9 mg/dL (2.5-4.9); SGOT/AST 71 U/L (15-37)
[2017-01-02 09:11] LABS: ALBUMIN 3.1 g/dl (3.4-5.0); ALK PHOS 122 U/L (45-117); ANION GAP 5 (8-16); BILIRUBIN,TOTAL 0.8 mg/dL (0.2-1.0); CALCIUM 7.7 mg/dL (8.5-10.1); CO2 29 mmol/L (21-32); CREATININE 0.8 mg/dL (0.7-1.3); GLUCOSE,RANDOM 103 mg/dL (74-106); MAGNESIUM 2.5 mg/dL (1.8-2.4); SGPT/ALT 228 U/L (12-78); TOT PROT 6.6 g/dl (6.4-8.2)
[2017-01-02] MEDS ORDERED: HYDROmorphone HCL CARPU-JECT 1 MG/1 ML DISP.SYRIN IVPB ONE (13:00)
--- NOTE | 2017-01-02 13:16 | PN ---
Progress Note, Physician History of Present Illness: stable but pain comes off and on hida scan done yesterday ercp today - Current Medication List Current Medications: Active Medications Acetaminophen (Tylenol -) 650 mg PO Q6H PRN PRN Reason: FEVER OR PAIN Last Admin: 01/01/17 16:51 Dose: 650 mg Diphenhydramine HCl (Benadryl -) 25 mg PO Q6H PRN PRN Reason: FOR ITCHING Heparin Sodium (Porcine) (Heparin -) 5,000 unit SQ TID MATTHEW Last Admin: 01/02/17 06:09 Dose: Not Given Hydromorphone HCl (Dilaudid Injection -) 1 mg IVPB Q4H PRN PRN Reason: PAIN Last Admin: 01/02/17 10:12 Dose: 1 mg Piperacillin Sod/Tazobactam Sod (Zosyn 3.375gm Ivpb (Pre-Docked)) 50 mls @ 100 mls/hr IVPB Q8H-IV MATTHEW PRN Reason: Protocol Last Admin: 01/02/17 09:03 Dose: 100 mls/hr Dextrose/Sodium Chloride (D5-Ns -) 1,000 mls @ 125 mls/hr IV ASDIR MATTHEW Last Admin: 01/01/17 13:27 Dose: 125 mls/hr Dextrose/Sodium Chloride (D5-1/2ns -) 1,000 mls @ 100 mls/hr IV ASDIR MATTHEW Last Admin: 01/02/17 06:14 Dose: 100 mls/hr - Objective Vital Signs: Vital Signs Temperature 98.8 F 01/02/17 10:00 Pulse Rate 74 01/02/17 10:00 Respiratory Rate 16 01/02/17 10:00 Blood Pressure 115/66 01/02/17 10:00 O2 Sat by Pulse Oximetry (%) 95 01/02/17 09:00 Constitutional: Yes: No Distress, Calm Cardiovascular: Yes: Regular Rate and Rhythm Respiratory: Yes: Regular, CTA Bilaterally Gastrointestinal: Yes: Normal Bowel Sounds, Soft, Tenderness Musculoskeletal: Yes: WNL Extremities: Yes: WNL Integumentary: Yes: WNL Neurological: Yes: Alert, Oriented Psychiatric: Yes: Alert, Oriented Labs: CBC, BMP 01/02/17 07:10 01/02/17 07:10 INR, PTT INR 1.08 (0.82-1.09) 12/30/16 14:35 Assessment/Plan leukocytosis gm negative bacteremia plan continue zosyn repeat blood cx negative hydration rest as per the team await for all results
[2017-01-02] MEDS ORDERED: ROCURONIUM BROMIDE 50 MG/5 ML VIAL ONE (15:46)
[2017-01-02] MEDS ORDERED: PROPOFOL 20 ML ONE (15:46)
--- NOTE | 2017-01-02 16:47 | PN ---
Physical Exam: SUBJECTIVE: Patient seen and examined. Slept well last night but pain a little worse today. Scheduled for 2pm ERCP today. OBJECTIVE: Vital Signs Period Temp Pulse Resp BP Sys/Allen Pulse Ox Last 24 Hr 98.6 F-102.2 F 72-92 16-20 107-152/66-99 95-95 GENERAL: The patient is awake, alert, and fully oriented. No acute distress. HEAD: Normal with no signs of trauma. EYES: PERRL, extraocular movements intact, sclera anicteric, conjunctiva clear. No ptosis. LUNGS: Breath sounds equal, clear to auscultation bilaterally, no wheezes, no crackles, no accessory muscle use. HEART: Regular rate and rhythm, S1, S2 without murmur, rub or gallop. ABDOMEN: Tenderness over epigastrum, normoactive bowel sounds, no guarding, no rebound EXTREMITIES: 2+ pulses, warm, well-perfused, no edema. NEUROLOGICAL: Cranial nerves II through XII grossly intact. Normal speech, gait not observed. Laboratory Results - last 24 hr 01/02/17 01/02/17 07:10 07:10 WBC 3.5 L D RBC 5.12 Hgb 14.5 Hct 43.6 MCV 85.1 MCHC 33.4 RDW 13.4 Plt Count 149 MPV 7.8 Neutrophils % 66.4 D Lymphocytes % 14.7 D Monocytes % 16.3 H D Eosinophils % 1.6 D Basophils % 1.0 Sodium 137 Potassium 3.8 Chloride 103 Carbon Dioxide 29 D Anion Gap 5 L BUN 13 Creatinine 0.8 Creat Clearance w eGFR > 60 Random Glucose 103 Calcium 7.7 L Phosphorus 1.9 L Magnesium 2.5 H Total Bilirubin 0.8 D AST 71 H D ALT 228 H D Alkaline Phosphatase 122 H Total Protein 6.6 Albumin 3.1 L Active Medications Generic Name Dose Route Start Last Admin Trade Name Freq PRN Reason Stop Dose Admin Acetaminophen 650 mg 01/01/17 00:27 01/01/17 16:51 Tylenol - PO 650 mg Q6H PRN Administration FEVER OR PAIN Diphenhydramine HCl 25 mg 01/01/17 00:27 Benadryl - PO Q6H PRN FOR ITCHING Heparin Sodium (Porcine) 5,000 unit 01/01/17 06:00 01/02/17 06:09 Heparin - SQ Not Given TID MATTHEW Hydromorphone HCl 1 mg 01/01/17 13:07 01/02/17 10:12 Dilaudid Injection - IVPB 1 mg Q4H PRN Administration PAIN Piperacillin Sod/Tazobactam Sod 50 mls @ 100 mls/hr 01/01/17 02:00 01/02/17 09: 03 Zosyn 3.375gm Ivpb (Pre-Docked) IVPB 100 mls/hr Q8H-IV MATTHEW Administration Protocol Dextrose/Sodium Chloride 1,000 mls @ 125 mls/hr 01/01/17 13:15 01/01/17 13:27 D5-Ns - IV 125 mls/hr ASDIR MATTHEW Administration Dextrose/Sodium Chloride 1,000 mls @ 100 mls/hr 01/01/17 20:00 01/02/17 06:14 D5-1/2ns - IV 100 mls/hr ASDIR MATTHEW Administration ASSESSMENT/PLAN 41 year-old man with a PMH of borderline HTN, HLD, and s/p choleycystectomy x 20 years, admitted for fever, abdominal pain, and bactermia. Abdominal pain Hyperbilirubinemia Transaminitis --12/31 MRCP: 3.4 x 1.4 x 1.4cm fluid structure with gallbladder fossa cystic duct remnant v. gallbladder remnant, mild concentric wall enhacement of common hepatic duct; stranding within fossa; common hepatic duct narrowing --01/01 HIDA scan unremarkable --Total bili and transaminases continue to trend down; hep serologies negative --ERCP today Fever E.coli bacteremia --blood cultures 2/2 + E.coli --continue Zosyn (day #2) --ID following Hypertension --BP well-controlled Hyperlipidemia --on no meds F/E/N Fluids: D5NS @ 125mL/hr Electrolytes: replete as indicated Nutrition: NPO DVT prophylaxis: subq heparin on hold for procedure Dispo: continues to require inpatient care. Full Code. Visit type - Emergency Visit Emergency Visit: Yes ED Registration Date: 12/30/16 Care time: The patient presented to the Emergency Department on the above date and was hospitalized for further evaluation of their emergent condition. - New Patient This patient is new to me today: No - Critical Care Critical Care patient: No
[2017-01-02] MEDS ORDERED: ONDANSETRON 4 MG/2 ML VIAL IVPUSH PRN (17:08)
[2017-01-02] MEDS ORDERED: LACTATED RINGERS SOLUTION 1,000 ML IV SCH ×2 (17:15→19:00)
--- NOTE | 2017-01-02 18:26 | PN ---
Progress Note (short form) - Note Progress Note: GI Procedure NOte: Please see scanned and attached ERCP report. 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 The stricture is felt to be the result of ischemic injury that can occur during a cholecystectomy. I did a cytologic brushing and brush catheter dilation of the stricture. It did not dilate so two 7FR x 7cm length plastic stents were placed across this stricture in the hope that it will dilate and permit extraction of the stone. Actigal should be continued in the interim. Given it's chronicity the likelihood of success is diminished and I discussed the potential need for ultimate hepaticojejunostomy with Nguyễn and his . I explained the situation in detail and entertained their questions. I provided referral to Dr Jone Bragg at [facility] and Dr Alok Fong at [facility] where such surgery can be done based on repeat ERCP findings. It should be repeated in 3-4 months. The patient needs to be watched carefully for pancreatitis and perforation of the stricture as well as postsphincterotomy bleeding.
[2017-01-03] MEDS ORDERED: LACTATED RINGERS SOLUTION 1,000 ML IV SCH ×3 (01:00→13:00)
[2017-01-03] MEDS: HYDROmorphone HCL CARPU-JECT 1 MG/1 ML DISP.SYRIN IVPB PRN ×3 (01:33→11:10)
[2017-01-03] MEDS: PIPERACILLIN/TAZOB 3.375 GM 50 ML IVPB SCH ×3 (01:37→19:55)
[2017-01-03 06:57] LABS: BASOPHIL 1.1 % (0-2.0); EOSINOPHIL 2.1 % (0-4.5); MCH 28.5 pg (25.7-33.7); MCHC 33.7 g/dl (32.0-35.9); MEAN CELL VOLUME 84.7 fl (80-96); NEUTROPHILS 62.4 % (42.8-82.8); PLATELET COUNT 165 K/MM3 (134-434); RDW 13.5 % (11.9-15.9); WHITE BLOOD COUNT 4.6 K/mm3 (4.0-10.0)
[2017-01-03 07:26] LABS: ALBUMIN 2.8 g/dl (3.4-5.0); BILIRUBIN,DIRECT 0.3 mg/dL (0.0-0.2); CALCIUM 7.9 mg/dL (8.5-10.1); CREATININE 0.8 mg/dL (0.7-1.3); MAGNESIUM 2.2 mg/dL (1.8-2.4); TOT PROT 6.3 g/dl (6.4-8.2)
[2017-01-03 07:27] LABS: BILIRUBIN,TOTAL 0.6 mg/dL (0.2-1.0)
--- NOTE | 2017-01-03 10:48 | PN ---
GI Progress Note Subjective: GI NOte: Having postERCP pain but there is no evidence of pancreatitis or perforation. It is likely due to dilation and manipulation of the bile duct stricture. He is hungry. I again explained the ERCP findings and need for a repeat ERCP and possible surgery at a tertiary care center. I explained the role of Actigal in the interim, to try to melt the trapped stone. - Objective Vital Signs: Vital Signs Temperature 99.1 F 01/03/17 05:00 Pulse Rate 77 01/03/17 05:00 Respiratory Rate 18 01/03/17 05:00 Blood Pressure 134/77 01/03/17 05:00 O2 Sat by Pulse Oximetry (%) 93 L 01/02/17 20:00 Constitutional: Calm Eyes: Yes: Conjunctiva Clear Gastrointestinal Inspection: Yes: WNL ...Auscultate: Yes: Normoactive Bowel Sounds ...Palpate: Yes: Soft, Other (nontender) Labs: CBC, BMP 01/03/17 05:55 01/03/17 05:55 INR, PTT INR 1.08 (0.82-1.09) 12/30/16 14:35 Laboratory Tests 01/03/17 01/03/17 05:55 05:55 WBC 4.6 D Hgb 14.0 Total Bilirubin 0.6 D Direct Bilirubin 0.3 H AST 71 H ALT 217 H Alkaline Phosphatase 132 H C-Reactive Protein 7.0 H D Total Amylase 116 H Lipase 413 H Assessment/Plan Day 1 s/p ERCP with dilation and double stenting of a proximal CBD stricture with a trapped stone in the left hepatic duct. He has improving post- manipulation pain. Diet has been advanced. If tolerated can consider discharge with followup at a tertiary care center ( referrals given).
[2017-01-03] MEDS: URSODIOL 300 MG CAPSULE PO SCH ×2 (12:59→22:01)
[2017-01-03] MEDS ORDERED: oxyCODONE HCL 5 MG TABLET PO PRN (13:11)
--- NOTE | 2017-01-03 15:55 | PN ---
Progress Note, Physician History of Present Illness: patient better no new findings - Current Medication List Current Medications: Active Medications Acetaminophen (Tylenol -) 650 mg PO Q6H PRN PRN Reason: FEVER OR PAIN Last Admin: 01/01/17 16:51 Dose: 650 mg Diphenhydramine HCl (Benadryl -) 25 mg PO Q6H PRN PRN Reason: FOR ITCHING Docusate Sodium (Colace -) 300 mg PO HS MATTHEW Piperacillin Sod/Tazobactam Sod (Zosyn 3.375gm Ivpb (Pre-Docked)) 50 mls @ 100 mls/hr IVPB Q8H-IV MTATHEW PRN Reason: Protocol Last Admin: 01/03/17 09:41 Dose: 100 mls/hr Oxycodone HCl (Roxicodone -) 5 mg PO Q6H PRN PRN Reason: PAIN Ursodiol (Actigal -) 300 mg PO BID MATTHEW Last Admin: 01/03/17 12:59 Dose: 300 mg - Objective Vital Signs: Vital Signs Temperature 99.4 F 01/03/17 14:13 Pulse Rate 89 01/03/17 14:13 Respiratory Rate 20 01/03/17 14:13 Blood Pressure 126/75 01/03/17 14:13 O2 Sat by Pulse Oximetry (%) 93 L 01/03/17 09:00 Constitutional: Yes: No Distress, Calm Cardiovascular: Yes: Regular Rate and Rhythm Respiratory: Yes: Regular, CTA Bilaterally Gastrointestinal: Yes: Normal Bowel Sounds, Soft Musculoskeletal: Yes: WNL Extremities: Yes: WNL Neurological: Yes: Alert, Oriented Psychiatric: Yes: Alert, Oriented Labs: CBC, BMP 01/03/17 05:55 01/03/17 05:55 INR, PTT INR 1.08 (0.82-1.09) 12/30/16 14:35 Assessment/Plan leukocytosis gm negative bacteremia cbd stricture cbd stone plan continue zosyn patient will need a total of 14 days of abx after 7 days of iv we can switch to oral very close watch on his vital will see how the pain progresses post ercp
--- NOTE | 2017-01-03 16:36 | PN ---
Physical Exam: SUBJECTIVE: Patient seen and examined. Pain is 2-3; ate small lunch, tolerated well. OBJECTIVE: Vital Signs Period Temp Pulse Resp BP Sys/Allen Pulse Ox Last 24 Hr 98.7 F-99.5 F 62-90 14-20 115-1501/59-86 93-98 GENERAL: The patient is awake, alert, and fully oriented. No acute distress. HEAD: Normal with no signs of trauma. EYES: PERRL, extraocular movements intact, sclera anicteric, conjunctiva clear. No ptosis. LUNGS: Breath sounds equal, clear to auscultation bilaterally, no wheezes, no crackles, no accessory muscle use. HEART: Regular rate and rhythm, S1, S2 without murmur, rub or gallop. ABDOMEN: Tenderness over epigastrum, normoactive bowel sounds, no guarding, no rebound EXTREMITIES: 2+ pulses, warm, well-perfused, no edema. NEUROLOGICAL: Cranial nerves II through XII grossly intact. Normal speech, gait not observed. Laboratory Results - last 24 hr 01/03/17 01/03/17 05:55 05:55 WBC 4.6 D RBC 4.91 Hgb 14.0 Hct 41.6 MCV 84.7 MCHC 33.7 RDW 13.5 Plt Count 165 MPV 8.0 Neutrophils % 62.4 Lymphocytes % 19.2 D Monocytes % 15.2 H Eosinophils % 2.1 Basophils % 1.1 Sodium 137 Potassium 3.9 Chloride 100 Carbon Dioxide 28 Anion Gap 9 BUN 10 D Creatinine 0.8 Random Glucose 88 Calcium 7.9 L Magnesium 2.2 Total Bilirubin 0.6 D Direct Bilirubin 0.3 H AST 71 H ALT 217 H Alkaline Phosphatase 132 H C-Reactive Protein 7.0 H D Total Protein 6.3 L Albumin 2.8 L Total Amylase 116 H Lipase 413 H Active Medications Generic Name Dose Route Start Last Admin Trade Name Freq PRN Reason Stop Dose Admin Acetaminophen 650 mg 01/01/17 00:27 01/01/17 16:51 Tylenol - PO 650 mg Q6H PRN Administration FEVER OR PAIN Diphenhydramine HCl 25 mg 01/01/17 00:27 Benadryl - PO Q6H PRN FOR ITCHING Docusate Sodium 300 mg 01/03/17 22:00 Colace - PO HS MATTHEW Piperacillin Sod/Tazobactam Sod 50 mls @ 100 mls/hr 01/01/17 02:00 01/03/17 09: 41 Zosyn 3.375gm Ivpb (Pre-Docked) IVPB 100 mls/hr Q8H-IV MATTHEW Administration Protocol Oxycodone HCl 5 mg 01/03/17 13:11 Roxicodone - PO Q6H PRN PAIN Ursodiol 300 mg 01/03/17 11:15 01/03/17 12:59 Actigal - PO 300 mg BID MATTHEW Administration ASSESSMENT/PLAN: 41 year-old man with a PMH of borderline HTN, HLD, and s/p choleycystectomy x 20 years, admitted for fever, abdominal pain, and bactermia. Found on ERCP to have common bile duct stone and stricture. Common bile duct stone and stricture --s/p ERCP on 01/02; sphincterotomy, stent placement --is oob today, minimal pain, tolerating PO intake --LFTs continue to improve --discussed case at length with Dr. Gayle; plan is for repeat ERCP in 3 months; no further surgical intervention at this time E.coli bacteremia --continue Zosyn (day #3) --per ID will need 7 days of IV therapy followed by 7 more days PO Hypertension --BP well-controlled Hyperlipidemia --on no meds F/E/N Fluids: PO intake adequate Electrolytes: replete as indicated Nutrition: soft diet DVT prophylaxis: lovenox; oob, ambulation Dispo: continues to require inpatient care. Full Code. Visit type - Emergency Visit Emergency Visit: Yes ED Registration Date: 12/30/16 Care time: The patient presented to the Emergency Department on the above date and was hospitalized for further evaluation of their emergent condition. - New Patient This patient is new to me today: No - Critical Care Critical Care patient: No
[2017-01-03] MEDS ORDERED: PT OWN MED DRAWER 7, Y5N ONE (21:19)
[2017-01-03] MEDS: DOCUSATE SODIUM 100 MG CAPSULE (FP) PO SCH (22:00)
[2017-01-03] MEDS ORDERED: URSODIOL 300 MG CAPSULE PO SCH (22:00)
[2017-01-04] MEDS: PIPERACILLIN/TAZOB 3.375 GM 50 ML IVPB SCH ×3 (03:45→17:29)
[2017-01-04] MEDS ORDERED: PT OWN MED DRAWER 7, Y5N ONE ×2 (09:56→21:58)
[2017-01-04] MEDS: ENOXAPARIN NA (PORCINE) 40 MG/0.4 ML DISP.SYRIN SQ SCH (10:01)
[2017-01-04] MEDS: URSODIOL 300 MG CAPSULE PO SCH ×2 (10:02→22:30)
--- NOTE | 2017-01-04 11:23 | PN ---
Physical Exam: SUBJECTIVE: Patient seen and examined. Has mild burning pain in stomach after eating, no nausea, no vomiting. Also with mild back pain, similar to pain pre- procedure. OBJECTIVE: Vital Signs Period Temp Pulse Resp BP Sys/Allen Pulse Ox Last 24 Hr 98.7 F-99.9 F 69-89 18-20 122-139/75-85 98 GENERAL: The patient is awake, alert, and fully oriented. No acute distress. HEAD: Normal with no signs of trauma. EYES: PERRL, extraocular movements intact, sclera anicteric, conjunctiva clear. No ptosis. LUNGS: Breath sounds equal, clear to auscultation bilaterally, no wheezes, no crackles, no accessory muscle use. HEART: Regular rate and rhythm, S1, S2 without murmur, rub or gallop. ABDOMEN: Tenderness over epigastrum, normoactive bowel sounds, no guarding, no rebound EXTREMITIES: 2+ pulses, warm, well-perfused, no edema. NEUROLOGICAL: Cranial nerves II through XII grossly intact. Normal speech, gait not observed. Active Medications Generic Name Dose Route Start Last Admin Trade Name Freq PRN Reason Stop Dose Admin Acetaminophen 650 mg 01/01/17 00:27 01/01/17 16:51 Tylenol - PO 650 mg Q6H PRN Administration FEVER OR PAIN Diphenhydramine HCl 25 mg 01/01/17 00:27 Benadryl - PO Q6H PRN FOR ITCHING Docusate Sodium 300 mg 01/03/17 22:00 01/03/17 22:00 Colace - PO 300 mg HS MATTHEW Administration Enoxaparin Sodium 40 mg 01/04/17 10:00 01/04/17 10:01 Lovenox - SQ 40 mg DAILY MATTHEW Administration Piperacillin Sod/Tazobactam Sod 50 mls @ 100 mls/hr 01/01/17 02:00 01/04/17 10: 01 Zosyn 3.375gm Ivpb (Pre-Docked) IVPB 100 mls/hr Q8H-IV MATTHEW Administration Protocol Oxycodone HCl 5 mg 01/03/17 13:11 01/03/17 18:55 Roxicodone - PO 5 mg Q6H PRN Administration PAIN Ursodiol 300 mg 01/03/17 11:15 01/04/17 10:02 Actigal - PO 300 mg BID MATTHEW Administration ASSESSMENT/PLAN: 41 year-old man with a PMH of borderline HTN, HLD, and s/p choleycystectomy x 20 years, admitted for fever, abdominal pain, and bactermia. Found on ERCP to have common bile duct stone and stricture. Common bile duct stone and stricture s/p sphincterotomy and stent placement --mild pain post-procedure --is oob today, tolerating PO intake --LFTs improved --plan is for repeat ERCP in 3 months; no further surgical intervention at this time E.coli bacteremia --continue Zosyn (day #3) --per ID will need 7 days of IV therapy followed by 7 more days PO Hypertension --BP well-controlled Hyperlipidemia --on no meds F/E/N Fluids: PO intake adequate Electrolytes: replete as indicated Nutrition: soft diet DVT prophylaxis: lovenox; oob, ambulation Dispo: continues to require inpatient care. Full Code. Visit type - Emergency Visit Emergency Visit: Yes ED Registration Date: 12/30/16 Care time: The patient presented to the Emergency Department on the above date and was hospitalized for further evaluation of their emergent condition. - New Patient This patient is new to me today: No - Critical Care Critical Care patient: No
[2017-01-04 11:51] LABS: ALBUMIN 3.4 g/dl (3.4-5.0); BILIRUBIN,DIRECT 0.3 mg/dL (0.0-0.2)
[2017-01-04 11:53] LABS: BILIRUBIN,TOTAL 0.7 mg/dL (0.2-1.0); TOT PROT 7.2 g/dl (6.4-8.2)
--- NOTE | 2017-01-04 14:57 | PN ---
Progress Note, Physician History of Present Illness: patient better still with some stomach discomfort - Current Medication List Current Medications: Active Medications Acetaminophen (Tylenol -) 650 mg PO Q6H PRN PRN Reason: FEVER OR PAIN Last Admin: 01/01/17 16:51 Dose: 650 mg Diphenhydramine HCl (Benadryl -) 25 mg PO Q6H PRN PRN Reason: FOR ITCHING Docusate Sodium (Colace -) 300 mg PO HS [facility] Last Admin: 01/03/17 22:00 Dose: 300 mg Enoxaparin Sodium (Lovenox -) 40 mg SQ DAILY [facility] Last Admin: 01/04/17 10:01 Dose: 40 mg Piperacillin Sod/Tazobactam Sod (Zosyn 3.375gm Ivpb (Pre-Docked)) 50 mls @ 100 mls/hr IVPB Q8H-IV MATTHEW PRN Reason: Protocol Last Admin: 01/04/17 10:01 Dose: 100 mls/hr Oxycodone HCl (Roxicodone -) 5 mg PO Q6H PRN PRN Reason: PAIN Last Admin: 01/03/17 18:55 Dose: 5 mg Ursodiol (Actigal -) 300 mg PO BID [facility] Last Admin: 01/04/17 10:02 Dose: 300 mg - Objective Vital Signs: Vital Signs Temperature 98.6 F 01/04/17 14:40 Pulse Rate 78 01/04/17 14:40 Respiratory Rate 20 01/04/17 14:40 Blood Pressure 127/77 01/04/17 14:40 O2 Sat by Pulse Oximetry (%) 98 01/03/17 21:00 Constitutional: Yes: No Distress, Calm Cardiovascular: Yes: Regular Rate and Rhythm Respiratory: Yes: Regular, CTA Bilaterally Gastrointestinal: Yes: Normal Bowel Sounds, Soft Musculoskeletal: Yes: WNL Extremities: Yes: WNL Neurological: Yes: Alert, Oriented Psychiatric: Yes: Alert Labs: CBC, BMP 01/03/17 05:55 01/03/17 05:55 INR, PTT INR 1.08 (0.82-1.09) 12/30/16 14:35 Assessment/Plan leukocytosis gm negative bacteremia cbd stricture cbd stone plan continue zosyn continue monitoring
--- NOTE | 2017-01-04 17:45 | PN ---
GI Progress Note Subjective: some upper abdominal discomfort no acute events - Objective Vital Signs: Vital Signs Temperature 98.6 F 01/04/17 14:40 Pulse Rate 78 01/04/17 14:40 Respiratory Rate 20 01/04/17 14:40 Blood Pressure 127/77 01/04/17 14:40 O2 Sat by Pulse Oximetry (%) 98 01/04/17 09:00 Constitutional: Calm Eyes: No: Sclera Icterus Cardiovascular: Yes: Regular Rate and Rhythm Respiratory: Yes: CTA Bilaterally Gastrointestinal Inspection: No: Distention ...Auscultate: Yes: Normoactive Bowel Sounds ...Palpate: Yes: Tenderness (mild ttp upper abdomen). 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 bacon Code(s): K83.0 - CHOLANGITIS
[2017-01-04] MEDS: DOCUSATE SODIUM 100 MG CAPSULE (FP) PO SCH (22:30)
[2017-01-05] MEDS: PIPERACILLIN/TAZOB 3.375 GM 50 ML IVPB SCH ×2 (03:29→09:11)
[2017-01-05 08:48] LABS: EOSINOPHIL 2.5 % (0-4.5); MCH 28.5 pg (25.7-33.7); MCHC 33.2 g/dl (32.0-35.9); MEAN CELL VOLUME 85.7 fl (80-96); MEAN PLT VOLUME 7.9 fl (7.5-11.1); NEUTROPHILS 70.8 % (42.8-82.8); PLATELET COUNT 233 K/MM3 (134-434); RDW 13.6 % (11.9-15.9); WHITE BLOOD COUNT 6.7 K/mm3 (4.0-10.0)
[2017-01-05] MEDS ORDERED: PT OWN MED DRAWER 7, Y5N ONE (09:01)
[2017-01-05 09:08] LABS: ALBUMIN 3.6 g/dl (3.4-5.0); ANION GAP 9 (8-16); BILIRUBIN,TOTAL 0.8 mg/dL (0.2-1.0); CALCIUM 8.6 mg/dL (8.5-10.1); CO2 29 mmol/L (21-32); CREATININE 0.9 mg/dL (0.7-1.3); GLUCOSE,RANDOM 92 mg/dL (74-106); MAGNESIUM 2.5 mg/dL (1.8-2.4); PHOSPHOROUS 3.5 mg/dL (2.5-4.9); SGOT/AST 70 U/L (15-37); SGPT/ALT 192 U/L (12-78); TOT PROT 7.4 g/dl (6.4-8.2)
[2017-01-05 09:09] LABS: ALK PHOS 142 U/L (45-117)
[2017-01-05] MEDS: ENOXAPARIN NA (PORCINE) 40 MG/0.4 ML DISP.SYRIN SQ SCH (09:10)
[2017-01-05] MEDS: URSODIOL 300 MG CAPSULE PO SCH (09:11)
--- NOTE | 2017-01-05 14:27 | PATH ---
Cytology Non-Gynecological Report Patient Name: PRADIP MCDONALD Med. Rec. #: [id number] /Age/Gender: 1975 (Age: 41) / M Account: [id number] Location: [address] [place] [address] Taken: 01/02/2017 Received: 01/03/2017 Reported: 01/05/2017 Physicians: Migel Jay ACNP Specimen(s) Received COMMON BILE DUCT STRICTURE Clinical History Common bile duct stricture; r/o malignant stricture Final Diagnosis COMMENT BILE DUCT, BRUSHING: SATISFACTORY FOR EVALUATION. CLUSTERS ATYPICAL CELLS PRESENT, FAVOR REACTIVE BILIARY EPITHELIAL CELLS. BACKGROUND BILIARY EPITHELIUM AND ACUTE INFLAMMATION. Electronically Signed Jin Britton M.D. Gross Description Received is a brush and a smear slide in 95% alcohol. One Pap stained smear slide, one cytofunnel slide and one cell block are made.
[2017-01-05 14:54] VITALS: BP 118/72; PULSE 78; TEMP 98.5
--- NOTE | 2017-01-05 15:52 | PN ---
Progress Note, Physician History of Present Illness: patient doing well no issues no abd pain - Current Medication List Current Medications: Active Medications Acetaminophen (Tylenol -) 650 mg PO Q6H PRN PRN Reason: FEVER OR PAIN Last Admin: 01/01/17 16:51 Dose: 650 mg Diphenhydramine HCl (Benadryl -) 25 mg PO Q6H PRN PRN Reason: FOR ITCHING Docusate Sodium (Colace -) 300 mg PO HS [facility] Last Admin: 01/04/17 22:30 Dose: Not Given Enoxaparin Sodium (Lovenox -) 40 mg SQ DAILY [facility] Last Admin: 01/05/17 09:10 Dose: 40 mg Piperacillin Sod/Tazobactam Sod (Zosyn 3.375gm Ivpb (Pre-Docked)) 50 mls @ 100 mls/hr IVPB Q8H-IV MATTHEW PRN Reason: Protocol Last Admin: 01/05/17 09:11 Dose: 100 mls/hr Oxycodone HCl (Roxicodone -) 5 mg PO Q6H PRN PRN Reason: PAIN Last Admin: 01/03/17 18:55 Dose: 5 mg Ursodiol (Actigal -) 300 mg PO BID [facility] Last Admin: 01/05/17 09:11 Dose: 300 mg - Objective Vital Signs: Vital Signs Temperature 98.5 F 01/05/17 14:52 Pulse Rate 78 01/05/17 14:52 Respiratory Rate 18 01/05/17 14:52 Blood Pressure 118/72 01/05/17 14:52 O2 Sat by Pulse Oximetry (%) 98 01/05/17 09:00 Constitutional: Yes: No Distress, Calm Cardiovascular: Yes: Regular Rate and Rhythm Respiratory: Yes: Regular, CTA Bilaterally Gastrointestinal: Yes: Normal Bowel Sounds, Soft Musculoskeletal: Yes: WNL Extremities: Yes: WNL Neurological: Yes: Alert, Oriented Psychiatric: Yes: Alert Labs: CBC, BMP 01/05/17 08:00 01/05/17 08:00 INR, PTT INR 1.08 (0.82-1.09) 12/30/16 14:35 Assessment/Plan leukocytosis gm negative bacteremia cbd stricture cbd stone plan can switch to augmentin 875mg twice a day for [address] current mgmt
--- NOTE | 2017-01-05 16:22 | DS ---
Physical Exam: SUBJECTIVE: Patient seen and examined OBJECTIVE: Vital Signs Period Temp Pulse Resp BP Sys/Allen Pulse Ox Last 24 Hr 98.1 F-99.5 F 68-86 18-20 118-151/72-91 98-98 PHYSICAL EXAM GENERAL: The patient is awake, alert, and fully oriented. No acute distress. HEAD: Normal with no signs of trauma. EYES: PERRL, extraocular movements intact, sclera anicteric, conjunctiva clear. No ptosis. LUNGS: Breath sounds equal, clear to auscultation bilaterally, no wheezes, no crackles, no accessory muscle use. HEART: Regular rate and rhythm, S1, S2 without murmur, rub or gallop. ABDOMEN: Tenderness over epigastrum, normoactive bowel sounds, no guarding, no rebound EXTREMITIES: 2+ pulses, warm, well-perfused, no edema. NEUROLOGICAL: Cranial nerves II through XII grossly intact. Normal speech, gait not observed. Laboratory Results - last 24 hr 01/05/17 01/05/17 08:00 08:00 WBC 6.7 D RBC 5.30 Hgb 15.1 Hct 45.4 MCV 85.7 MCHC 33.2 RDW 13.6 Plt Count 233 D MPV 7.9 Neutrophils % 70.8 Lymphocytes % 18.0 Monocytes % 7.7 Eosinophils % 2.5 Basophils % 1.0 Sodium 139 Potassium 3.8 Chloride 101 Carbon Dioxide 29 Anion Gap 9 BUN 14 D Creatinine 0.9 Creat Clearance w eGFR > 60 Random Glucose 92 Calcium 8.6 Phosphorus 3.5 D Magnesium 2.5 H Total Bilirubin 0.8 AST 70 H ALT 192 H Alkaline Phosphatase 142 H Total Protein 7.4 Albumin 3.6 HOSPITAL COURSE: Date of Admission:12/30/16 Date of Discharge: 01/05/17 41 year-old man with a PMH of borderline HTN, HLD, and s/p choleycystectomy x 20 years, admitted for fever, abdominal pain, and bactermia. Found on ERCP to have common bile duct stone and stricture. Common bile duct stone and stricture s/p sphincterotomy and stent placement --12/31 MRCP: 3.4 x 1.4 x 1.4cm fluid structure with gallbladder fossa cystic duct remnant v. gallbladder remnant, mild concentric wall enhacement of common hepatic duct; stranding within fossa; common hepatic duct narrowing --01/01 HIDA scan unremarkable --01/02 ERCP: sphincterectomy and stent placement --Total bili and transaminases trended down; hep serologies negative E.coli bacteremia -- Zosyn x 7 days --discharged on Augmentin x 7 days Hypertension --BP well-controlled Hyperlipidemia --on no meds Minutes to complete discharge: 35 Discharge Summary Reason For Visit: SEPSIS Current Active Problems Cholangitis (Acute) Sepsis (Acute) Condition: Stable - Instructions Diet, Activity, Other Instructions: Two prescriptions have been sent to your pharmacy. One is for Augmentin which is an antibiotic. It is VERY IMPORTANT that you take this medication as prescribed and that you FINISH all the medication. The second one is for Actigall. You are being prescribed a 30-day supply. You will have to get refills for this prescription from your primary care provider or from your GI doctor. As explained to you by Dr. Gayle, you need to follow up with a GI specialist. Dr. Gayle has provided you with the names of two such specialists. Return to the emergency room for any new or worsening symptoms. Referrals: Agustina Gayle MD [Staff Physician] - Disposition: HOME - Home Medications Comprehensive Discharge Medication List: Ambulatory Orders Amox-Tr/K Cl [Augmentin - 875Mg Tablet] 1 tab PO BID #14 tablet 01/05/17 Ursodiol [Actigal -] 300 mg PO BID #60 capsule 01/05/17 This patient is new to me today: No Emergency Visit: Yes ED Registration Date: 12/30/16 Care time: The patient presented to the Emergency Department on the above date and was hospitalized for further evaluation of their emergent condition. Critical Care patient: No - Discharge Referral Referred to [facility] No
--- NOTE | 2017-01-05 17:16 | PN ---
GI Progress Note Subjective: GI NOte: Pain free. Tolerating diet. Going home on oral antibiotics. - Objective Vital Signs: Vital Signs Temperature 98.5 F 01/05/17 14:52 Pulse Rate 78 01/05/17 14:52 Respiratory Rate 18 01/05/17 14:52 Blood Pressure 118/72 01/05/17 14:52 O2 Sat by Pulse Oximetry (%) 98 01/05/17 09:00 ...Auscultate: Yes: Normoactive Bowel Sounds ...Palpate: Yes: Soft, Other (nontender) Labs: CBC, BMP 01/05/17 08:00 01/05/17 08:00 INR, PTT INR 1.08 (0.82-1.09) 12/30/16 14:35 Assessment/Plan Resolved cholangitis with stents. Reiterated need to continue Actigall and arrange future ERCP at tertiary care center. Can be followed by us until then. NO GI objections to discharge.
== END 2017-01-05 16:44 | disposition home or self-care (01) | DRG 871 ==
LOC: FER 13:46 → FM/S 18:00 → J5S 12-31 23:14
PROVIDERS: ADMIT Internal Medicine; ATTEND Nurse Practitioner Acute Care
PROC: BF10YZZ Fluoroscopy of Bile Ducts using Other Contrast (ICD-10-PCS; 2017-01-02)
PROC: 0F798DZ Dilation of Common Bile Duct with Intraluminal Device, Via Natural or Artificial Opening Endoscopic (ICD-10-PCS; 2017-01-02)
PROC: 0FH Hepatobiliary System and Pancreas, Insertion (ICD-10-PCS; 2017-01-02)
PROC: 0FC98ZZ Extirpation of Matter from Common Bile Duct, Via Natural or Artificial Opening Endoscopic (ICD-10-PCS; principal; 2017-01-02 14:30)
DX: A41.9 Sepsis, unspecified organism (principal); K83.1 Obstruction of bile duct; K80.32 Calculus of bile duct with acute cholangitis without obstruction; D72.829 Elevated white blood cell count, unspecified; I10 Essential (primary) hypertension; E78.5 Hyperlipidemia, unspecified; R74.0 Nonspecific elevation of levels of transaminase and lactic acid dehydrogenase [LDH]; E66.9 Obesity, unspecified; Z68.33 Body mass index [BMI] 33.0-33.9, adult
CPT/HCPCS: 36415; 71010-TC; 74177-TC; 74182-TC; 74330-TC; 78226-TC; 80048; 80053; 80074; 80076; 81003; 82150; 82550; 82553; 83605; 83690; 83735; 84100; 84484; 85025; 85610; 85730; 86140; 87040; 87086; 87186; 88108; 88305-TC; 93005; 94760; 99285-25; A9537; A9576; J1644